=== PATIENT | female | born 1940 | race Caucasian/White ===

== ENCOUNTER 2020-10-30 20:24 | Emergency (ER) | payer MEDICARE, BC ==
[~2020-10-30] VITALS: Ht 170.2 cm; Wt 63.5 kg
--- NOTE | 2020-10-30 20:33 | NUR ---
Patient BIB [facility] for c/o epistaxis x 1 hour placement manager. Also endorses ground level fall earlier today without LOC/head injury. No blood thinners. Patient is hypertensive upon arrival with SBP>200s
--- NOTE | 2020-10-30 20:35 | NUR ---
Rose moore in ED - 10/30/20 at 2132 by VANESSA Nose tong placed on patient's nose per MD Harper to apply pressure to stop nosebleed.
[2020-10-30] MEDS ORDERED: AMLO2.5T4 PO (20:39)
[2020-10-30] MEDS ORDERED: METO25TA6 PO (20:39)
--- NOTE | 2020-10-30 20:40 | NUR ---
MD Harper in room to do MSE.
--- NOTE | 2020-10-30 20:42 | NUR ---
Nose tong placed on patient's nose per MD Harper to apply pressure to stop nosebleed.
--- NOTE | 2020-10-30 21:00 | NUR ---
technical sales director in room to take x-rays.
[2020-10-30 21:13] LABS: BASOPHILS % (AUTO) 0.8 % (0.0-2.0); EOSINOPHILS % (AUTO) 0.5 % (0.0-7.0); HEMATOCRIT 39.4 % (31.2-41.9); HEMOGLOBIN 13.7 g/dL (10.9-14.3); LYMPHOCYTES # (AUTO) 0.9 K/uL (20.0-40.0); LYMPHOCYTES % (AUTO) 14.9 % (20.5-51.5); MEAN CORPUSCULAR HEMOGLOBIN 32.8 uug (24.7-32.8); MEAN CORPUSCULAR HGB CONC 35 g/dL (32.3-35.6); MEAN CORPUSCULAR VOLUME 94.5 fL (75.5-95.3); MONOCYTES # (AUTO) 0.5 K/uL (2.0-10.0); MONOCYTES % (AUTO) 8.2 % (0.0-11.0); NEUTROPHILS # (AUTO) 4.4 K/uL (1.8-8.9); NEUTROPHILS % (AUTO) 75.6 % (38.5-71.5); PLATELET COUNT (AUTO) 258 K/uL (179-408); RED BLOOD CELL COUNT(AUTO) 4.17 MIL/uL (3.63-4.92); WHITE BLOOD COUNT (AUTO) 5.8 K/uL (3.8-11.8)
[2020-10-30 21:14] LABS: CREATININE 0.6 mg/dL (0.6-1.3); POTASSIUM 3.7 mmol/L (3.5-5.1)
[2020-10-30] MEDS ORDERED: OXYMETAZOLINE NASAL 0.05% 15 ML SPRAY NS ONE ×2 (21:15→21:27)
--- NOTE | 2020-10-30 21:40 | NUR ---
Patient verbalizes improvement in nosebleed after adminstration of medication.
[2020-10-30] MEDS ORDERED: SILVER NITRATE APPLICATOR STICK EACH TP ONE ×2 (22:39→22:45)
--- NOTE | 2020-10-30 22:51 | NUR ---
Patient discharged to home in stable condition. Written and verbal after care instructions given. Patient verbalizes understanding of instructions. Stressed follow up or return to ER for worsening s/s. Ambulated from ER with stable gait. All belongings with patient.
[2020-10-30] MEDS ORDERED: TRANEXAMIC ACID 1,000 MG/10 ML VIAL IR ONE (23:00)
[2020-10-30] MEDS ORDERED: TRANEXAMIC ACID 1,000 MG/10 ML VIAL ONE (23:07)
--- NOTE | 2020-10-30 23:07 | NUR ---
Patient noted with increased nasal bleeding, brought back into the ER for further eval. ER MD aware and at bedside
[2020-10-31] MEDS ORDERED: CEPH250C PO (00:15)
[2020-10-31 00:21] VITALS: BP 147/87
--- NOTE | 2020-10-31 00:21 | NUR ---
Patient discharged to home in stable condition. Written and verbal after care instructions given. Patient verbalizes understanding of instructions. Stressed follow up or return to ER for worsening s/s.
== END 2020-10-31 00:23 | disposition home or self-care (01) ==
LOC: ER 20:26
DX: R04.0 Epistaxis (principal); I10 Essential (primary) hypertension; S00.11XA Contusion of right eyelid and periocular area, initial encounter; W18.30XA Fall on same level, unspecified, initial encounter; Y92.018 Other place in single-family (private) house as the place of occurrence of the external cause; Z79.899 Other long term (current) drug therapy; Z88.1 Allergy status to other antibiotic agents
CPT/HCPCS: 30901; 36415; 85025; 85730; A4663

== ENCOUNTER 2020-11-01 14:02 | Emergency (ER) | payer MEDICARE, BC ==
[~2020-11-01] VITALS: Ht 170.2 cm; Wt 63.5 kg
[~2020-11-01 14:02] MED LIST: AMLO2.5T4 PO; CEPH250C PO; METO25TA6 PO
--- NOTE | 2020-11-01 14:19 | NUR ---
at bedside for assessment
--- NOTE | 2020-11-01 15:43 | NUR ---
Rhino rocket removed from right nostril, no bleeding noted, patient instructed not to blow nose at this time
--- NOTE | 2020-11-01 16:01 | NUR ---
Patient discharged to home in stable condition. Patient given nose clamp to take home incase of nose bleed. no sign sof acute distress noted. Written and verbal after care instructions given. Patient verbalizes understanding of instructions. Stressed follow up or return to ER for worsening s/s.
[2020-11-01 16:08] VITALS: BP 145/73
== END 2020-11-01 16:01 | disposition home or self-care (01) ==
LOC: ER 14:03
DX: Z48.00 Encounter for change or removal of nonsurgical wound dressing (principal); S00.11XA Contusion of right eyelid and periocular area, initial encounter; W01.198A Fall on same level from slipping, tripping and stumbling with subsequent striking against other object, initial encounter; Y93.89 Activity, other specified; Y92.019 Unspecified place in single-family (private) house as the place of occurrence of the external cause; J34.2 Deviated nasal septum; R03.0 Elevated blood-pressure reading, without diagnosis of hypertension
CPT/HCPCS: 70486; A4663